=== PATIENT | female | born 2005 | race Caucasian/White ===

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

== ENCOUNTER → 2023-04-05 | Outpatient (CLI) | payer OTHER, SELFPAY ==
--- NOTE | 2023-04-05 10:35 | MRI_ITS ---
MR Enterography Abdomen/Pelvis WO/W Contrast 04/05/2023 1:17 PM COMPARISON: None available. CLINICAL HISTORY: R19.7 - Diarrhea, unspecified, EXCESSIVE DIARREHA X2YRS, ABDOMINAL/PELVIC CRAMPING TECHNIQUE: Following oral administration of enteric contrast and administration of glucagon, multiplanar T1 and T2 weighted images along with dynamic post-gadolinium images were obtained through the abdomen and pelvis. FINDINGS: GI Tract: A few loops of proximal small bowel demonstrate mild circumferential wall thickening and mucosal hyperenhancement. No stricture, fistula, or obstruction. No drainable fluid collections. Liver: Unremarkable Gallbladder: Unremarkable Spleen: Unremarkable Pancreas: Unremarkable Adrenal Glands: Unremarkable Kidneys: Unremarkable Reproductive: Unremarkable. Bladder: Unremarkable. Lymphadenopathy: Absent Ascites: Absent Bones: No suspicious lesions MRI/Enterography Abd/Pel IMPRESSION: Findings consistent with infectious versus inflammatory enteritis. No focal fluid collection or free air. No stricture, fistula or obstruction. Electronically Signed: Jeison Streeter MD at 19:46 EDT ,
[2023-04-05 12:20] VITALS: BP 113/70; PULSE 66; RESP 14; O2SAT 100; BMI 20.5
[2023-04-05] MEDS: Glucagon 1 MG/ML Syringe IV (13:42)
[2023-04-05 14:00] VITALS: BP 127/88; PULSE 70; RESP 14; O2SAT 100
== END | disposition home or self-care (01) ==
PROVIDERS: PCP Nurse Practitioner Family; Referring Provider Internal Medicine Gastroenterology; Visit Provider Internal Medicine Gastroenterology
DX: R19.7 Diarrhea, unspecified (principal)
CPT/HCPCS: 74183; 96374; A9575; A4216; J1610

== ENCOUNTER 2023-09-12 08:41 | Day surgery (SDC) | payer OTHER, SELFPAY ==
[2023-09-12] VITALS (9 sets, daily range): BP systolic 82–116; BP diastolic 54–80; PULSE 66–91; RESP 16; TEMP 36.3–36.4; O2SAT 97–100; BMI 17.0
[2023-09-12] MEDS: Lactated Ringers 1,000 ML 15 ML IV (09:14)
[2023-09-12 09:16] LABS: Internal QC Validated? YES +Cl - CLEAR BKGD; Pregnancy, Urine Negative Negative; Record Kit Lot#,Urine Preg HCG0000718086
--- NOTE | 2023-09-12 09:40 | PCM.HP.BLA ---
History and Physical Date of Admission: 09/12/23 17 F who presents to the office today for PCP referred 3.14.23 for GI issues to include loose stools and abdominal pain with fatigue. *BGI established 5.26.23 loose 3-4/day with abdominal pain and nausea with difficulty gaining weight; severe episodes occurring approximately once a month lasting days to weeks with significant increase of loose stools, abdominal pain, nausea and emesis with weight loss of 10lbs during these episodes. 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 Strong family history of colon and stomach cancer. She has not had prior workup for any of this. Recent history of increased infections to include COVID and MRSA dental abscess. ? Biochemical CBC, ESR, CMP, LDH, LFT, RAST, ADITI comp, GAME, ANCA, celiac, gastrin, BRIANNA, IBD, PR3, TB, titers without pertinent abnormality. ? CRP H3.12, MPO H656 ? Stool calprotectin, elastase, h.pylori, C.difficile, lactoferrin, blood, EP, O/P, giardia WNL Contact, mother, .. with MPO results and recommend rheumatology referral. She will determine who they would like to see and let this clinic know. Referred to Dr. Lenz. ? MREnterography 10.3.23 few proximal small bowel loops with mild circumferential wall thickening and mucosal hyperenhancement. OV 10.5.23 BM pattern 1-2 days with little to no BM with straining which will produce hard stools then will have loose stools without blood/mucus 4-5/day which can be triggered by foods. BM are preceding by abdominal pain. Dr. Lenz seen but visit was not conclusive, labs were drawn. ROS Const Constitutional: No anorexia, fatigue, fever(s), weight change or sleep problems Eyes Eyes: No change in vision ENT ENT: No abnormal hearing, difficulty swallowing, mouth lesions, tongue swelling or throat swelling Resp Respiratory: No cough or shortness of breath Cardio Cardiology: No chest pain at rest, chest pain with exertion, shortness of breath or dyspnea on exertion Gastro GI: No difficulty swallowing Genitourinary-Female: No difficulty urinating or burning urination Musc Musculoskeletal: No joint pain, joint swelling, muscle weakness or decreased muscle mass Skin Skin: No hair loss in leg, yellowing of the eye, itchy eyes, rash, skin ulcer or skin swelling Neuro Neurology: No abnormal hearing, abnormal movements, confusion, unsteady gait/balance or memory loss Psych Psychiatric: No anxiety, No confusion and No memory loss Endo Endocrine: No fatigue or weight change Aller/Imm Allergy/Immunologic: No itchy eyes, throat swelling or tongue swelling Yogi/Lymp Hematologic/Lymphatic: No easy bleeding, easy bruising or enlarged lymph nodes Exam Const General: cooperative and comfortable Nutritional Appearance: average body habitus and well nourished HENMT Head: normal to inspection Ears: hearing grossly normal bilaterally Nose: external nose normal Face and sinus: normal facial exam Mouth: oral mucosae normal Throat: posterior oropharynx normal Eyes General: appearance normal, both eyes and all related structures Neck Neck: normal visual inspection Chest Chest palpation & inspection: normal inspection of the chest and normal palpation of entire chest wall Resp Effort & Inspection: normal respiratory effort Auscultation: Bilateral: Clear to Auscultation Cardio Palpation: normal PMI Rate: regular rate Rhythm: regular rhythm GI Inspection: normal to inspection Auscultation: normal bowel sounds Percussion: normal to percussion Palpation: no hepatosplenomegaly Skin General: no rashes or lesions noted Neuro General: patient alert Extrem General: normal to inspection Psych Affect: normal affect Quality Reporting Tobacco Screening ([facility] 138) Smoking Status: Never smoker Assessment and Plan Assessment and Plan (1) IBS (irritable bowel syndrome): Status: Chronic Qualifiers: Irritable bowel syndrome type: with diarrhea Qualified Code(s): K58.0 - Irritable bowel syndrome with diarrhea (2) Diarrhea: Status: Inactive Qualifiers: Diarrhea type: functional diarrhea Qualified Code(s): K59.1 - Functional diarrhea Plan: The differential diagnosis for diarrhea does include exocrine pancreatic insufficiency, bile acid induced diarrhea, accelerated gastrocolic reflex, inflammatory bowel disease, microscopic colitis, celiac disease, postinfectious diarrhea since she did have a Cryptosporidium infection. Her MRI enterography did display some inflammation in the small bowel. We will get a capsule study and decide a treatment course and if there is any need to perform an egd and colonoscopy. I have examined the patient and the H&P has been reviewed. There are no clinical changes since date of exam.
--- NOTE | 2023-09-12 09:45 | IMM_PTH ---
PATHOLOGY RESULTS PATIENT: DANIELLE RAMIREZ LOC: EN U#:[id number] AGE/SX: 17/F ROOM: RE09/12/[address]: Dr. Nash Cabrera DO : 2005 BED: DIS: 09/12/2023 SPEC #: [id number] RECD: 09/12/23 13:55 STATUS: MAKAYLA REQ #: [id number] ADRIEN: 09/12/23 09:[address]: Nash Cabrera DEPT: IMMUNOHISTOCHEMISTRY RECD BY: Samson Rowland ENTERED: 09/12/23 13:56 SP TYPE: IMMUNO LYNNE DR: CHELSEY Girard Tissues: Stomach, NOS Procedures: H Pylori (initial) PHYSICIAN & [place] [id number] SPECIMEN INFORMATION: Tissue Source: B.Gastric Body Clinical Info: Irritable Bowel Syndrome Specimen Number: [id number] CPT code: 32027 METHODOLOGY: Deparaffinized sections of prefer/formalin-fixed tissue or PAP/DQ stained slides are incubated with monoclonal/polyclonal antibodies/oligonucleotide probes. Localization is made via biotin free immunoperoxidase method. Appropriate controls are performed and reacted as expected. Results on target cell population are indicated in the following table: RESULTS: ANTIBODY / CLONE RESULT Block B H.pylori negative These tests were developed and their performance characteristics determined by [facility]. They may not have been cleared or approved by the U.S. Food and Drug Administration. The FDA has determined that such clearance or approval is not necessary. The above immunohistochemical/dualISH markers are ordered and reviewed by the Pathologist. INTERPRETATION: B- Gastric body biopsy: Negative for Helicobacter pylori organisms. AM:abhi 09/13/2023
--- NOTE | 2023-09-12 09:45 | EGD_PTH ---
PATHOLOGY RESULTS PATIENT: DANIELLE RAMIREZ LOC: EN U#:[id number] AGE/SX: 17/F ROOM: RE09/12/[address]: Dr. Nash Cabrera DO : 2005 BED: DIS: 09/12/2023 SPEC #: [id number] RECD: 09/12/23 12:50 STATUS: MAKAYLA RENathan #: [id number] ADRIEN: 09/12/23 09:[address]: Nash Cabrera DEPT: SURGICAL PATHOLOGY RECD BY: Mindy Garcia ENTERED: 09/12/23 13:44 SP TYPE: EGD BIOPSY LYNNE DR: CHELSEY Girard Tissues: Duodenum, NOS Gastric mucous membrane Ileum, NOS COLON BIOPSY Procedures: Surgery Specimen Level IV HEADER OPERATION: Colonoscopy, EGD, biopsy PRE-OP DIAGNOSIS: Irritable Bowel Syndrome TISSUE SUBMITTED: A. Duodenum biopsy, B. Gastric body biopsy, C. Terminal Ileum biopsy, D. Random colonic biopsy MICROSCOPIC DIAGNOSIS A. Duodenum, biopsy: Fragments of duodenal mucosa, no pathologic diagnosis. B. Gastric body, biopsy: Mild gastritis. See microscopic description and comment. C. Terminal ileum, biopsy: Fragments of small intestinal mucosa, no pathologic diagnosis. See comment. D. Colon, random biopsy: Focal acute colitis. See comment. SJ:abhi 09/13/2023 COMMENT B. The results of immunohistochemistry for Helicobacter pylori will be reported separately ([id number]). C. Prominent lymphoid aggregates are noted. D. Focal cryptitis and minimal glandular distortion is noted. Crypt abscesses or granulomas are not seen. No evidence of dysplasia. Correlation with clinical, endoscopic findings and appropriate follow up are necessary. MICROSCOPIC DESCRIPTION Slides are reviewed. B. The specimen shows fragments of gastric mucosa with chronic inflammatory cell infiltrates in the lamina propria consisting of lymphocytes and plasma cells, consistent with mild chronic gastritis. GROSS DESCRIPTION A - Received in fixative is one container labeled with the patient's name and designated Duodenum Biopsy. The specimen consists of multiple irregular fragments of light cox soft tissue that in aggregate measure 1.5 x 1.0 x 0.1 cm. The specimen is totally submitted in one cassette. B - Received in fixative is one container labeled with the patient's name and designated Gastric body. The specimen consists of multiple irregular fragments of light cox soft tissue that in aggregate measure 1.3 x 0.2 x 0.1 cm. The specimen is totally submitted in one cassette. C - Received in fixative is one container labeled with the patient's name and designated Terminal Ileum biopsy. The specimen consists of multiple irregular fragments of light cox soft tissue that in aggregate measure 1.0 x 0.5 x 0.1 cm. The specimen is totally submitted in one cassette. D - Received in fixative is one container labeled with the patient's name and designated Random Colonic biopsy. The specimen consists of multiple irregular fragments of light cox soft tissue that in aggregate measure 2.0 x 1.0 x 0.1 cm. The specimen is totally submitted in one cassette. AM/ 09/12/23 TC:2 CPT: 09444 x4
--- NOTE | 2023-09-12 10:27 | OP.CCLET_ITS ---
09/12/2023 Junito Ward Re : Upper GI endoscopy procedure for Stephanie Mae Dear Np. Carlson This procedure was performed on Tuesday, September 12, 2023. My impressions and recommendations are as follows: Impressions : - Normal esophagus. - Erythematous mucosa in the gastric body. Possibly secondary to bile gastritis. The area was biopsied. - No gross lesions in the second portion of the duodenum. Biopsied. Recommendations : - Discharge patient to home. - Resume previous diet. - Continue present medications. - Await pathology results. My findings are described in the full procedure note, which is enclosed. If I can be of further assistance, please feel free to contact me at . Sincerely, Nash Cabrera, 09/12/2023 10:27:15 AM This report has been signed electronically.
--- NOTE | 2023-09-12 10:27 | OP.EGD_ITS ---
Patient Name: Stephanie Mae Procedure Date: 09/12/2023 9:44 AM Date of : 2005 Age: 17 Procedure: Upper GI endoscopy Indications: Epigastric abdominal pain Providers: Nash Cabrera DO Medicines: Monitored Anesthesia Care Patient Profile: This is a 17 year old female. Refer to note in patient chart for documentation of history and physical. Patient has symptoms of acute abdominal cramping, chronic abdominal cramping, acute epigastric abdominal pain, chronic epigastric abdominal pain, acute dyspepsia and chronic dyspepsia. Complications: No immediate complications. Procedure: Pre-Anesthesia Assessment: - Prior to the procedure, a History and Physical was performed, and patient medications and allergies were reviewed. The patient is competent. The risks and benefits of the procedure and the sedation options and risks were discussed with the patient. All questions were answered and informed consent was obtained. Patient identification and proposed procedure were verified by the physician in the pre-procedure area. Mental Status Examination: alert and oriented. Airway Examination: normal oropharyngeal airway and neck mobility. Respiratory Examination: clear to auscultation. CV Examination: normal. Prophylactic Antibiotics: The patient does not require prophylactic antibiotics. Prior Anticoagulants: The patient has taken no anticoagulant or antiplatelet agents. ASA Grade Assessment: II - A patient with mild systemic disease. After reviewing the risks and benefits, the patient was deemed in satisfactory condition to undergo the procedure. The anesthesia plan was to use monitored anesthesia care (MAC). Immediately prior to administration of medications, the patient was re-assessed for adequacy to receive sedatives. The heart rate, respiratory rate, oxygen saturations, blood pressure, adequacy of pulmonary ventilation, and response to care were monitored throughout the procedure. The physical status of the patient was re-assessed after the procedure. After obtaining informed consent, the endoscope was passed under direct vision. Throughout the procedure, the patient's blood pressure, pulse, and oxygen saturations were monitored continuously. The Colonoscope was introduced through the mouth, and advanced to the second part of duodenum. The upper GI endoscopy was accomplished without difficulty. The patient tolerated the procedure well. Scope In: 9:55:19 AM Scope Out: 9:59:42 AM Total Procedure Duration Time 0 hours 4 minutes 23 seconds Findings: The examined esophagus was normal. Patchy mildly erythematous mucosa without bleeding was found in the gastric body. Biopsies were taken with a cold forceps for histology. Verification of patient identification for the specimen was done. Biopsies were taken with a cold forceps for Helicobacter pylori testing. Verification of patient identification for the specimen was done. Estimated blood loss was minimal. No gross lesions were noted in the second portion of the duodenum. Biopsies were taken with a cold forceps for histology. Verification of patient identification for the specimen was done. Estimated blood loss was minimal. Impression: - Normal esophagus. - Erythematous mucosa in the gastric body. Possibly secondary to bile gastritis. The area was biopsied. - No gross lesions in the second portion of the duodenum. Biopsied. Recommendation: - Discharge patient to home. - Resume previous diet. - Continue present medications. - Await pathology results. Procedure Code(s): --- Professional --- 96983, Esophagogastroduodenoscopy, flexible, transoral; with biopsy, single or multiple CPT copyright 2021 [employer]. All rights reserved. The codes documented in this report are preliminary and upon machine operator helper review may be revised to meet current compliance requirements. Nash Cabrera DO 09/12/2023 10:27:15 AM This report has been signed electronically. Number of Addenda: 0 Note Initiated On: 09/12/2023 9:44 AM
--- NOTE | 2023-09-12 10:32 | OP.CCLET_ITS ---
09/12/2023 Junito Ward Re : Colonoscopy procedure for Stephanie Mae Dear Np. Carlson This procedure was performed on Tuesday, September 12, 2023. My impressions and recommendations are as follows: Impressions : - Congested mucosa in the sigmoid colon, at the hepatic flexure and in the ascending colon. Biopsied. - Mild mucosal changes were found in the ileum. Biopsied. Recommendations : - Discharge patient to home. - Resume previous diet. - Continue present medications. - Await pathology results. - Repeat colonoscopy is recommended. The colonoscopy date will be determined after pathology results from today's exam become available for review. My findings are described in the full procedure note, which is enclosed. If I can be of further assistance, please feel free to contact me at . Sincerely, Nash Cabrera, 09/12/2023 10:31:52 AM This report has been signed electronically.
--- NOTE | 2023-09-12 10:32 | OP.COLON_ITS ---
Patient Name: Stephanie Mae Procedure Date: 09/12/2023 9:59 AM Date of : 2005 Age: 17 Procedure: Colonoscopy Indications: Generalized abdominal pain, Chronic diarrhea, Abnormal MRI of the GI tract Providers: Nash Cabrera DO Medicines: Monitored Anesthesia Care Patient Profile: This is a 17 year old female. Refer to note in patient chart for documentation of history and physical. Patient has symptoms of acute abdominal cramping, chronic abdominal cramping, acute epigastric abdominal pain, chronic epigastric abdominal pain, acute dyspepsia and chronic dyspepsia. Last Colonoscopy: none. The patient's first colonoscopy is today. Complications: No immediate complications. Procedure: Pre-Anesthesia Assessment: - Prior to the procedure, a History and Physical was performed, and patient medications and allergies were reviewed. The patient is competent. The risks and benefits of the procedure and the sedation options and risks were discussed with the patient. All questions were answered and informed consent was obtained. Patient identification and proposed procedure were verified by the physician in the pre-procedure area. Mental Status Examination: alert and oriented. Airway Examination: normal oropharyngeal airway and neck mobility. Respiratory Examination: clear to auscultation. CV Examination: normal. Prophylactic Antibiotics: The patient does not require prophylactic antibiotics. Prior Anticoagulants: The patient has taken no anticoagulant or antiplatelet agents. ASA Grade Assessment: II - A patient with mild systemic disease. After reviewing the risks and benefits, the patient was deemed in satisfactory condition to undergo the procedure. The anesthesia plan was to use monitored anesthesia care (MAC). Immediately prior to administration of medications, the patient was re-assessed for adequacy to receive sedatives. The heart rate, respiratory rate, oxygen saturations, blood pressure, adequacy of pulmonary ventilation, and response to care were monitored throughout the procedure. The physical status of the patient was re-assessed after the procedure. After I obtained informed consent, the scope was passed under direct vision. Throughout the procedure, the patient's blood pressure, pulse, and oxygen saturations were monitored continuously. The Colonoscope was introduced through the anus and advanced to the terminal ileum. The colonoscopy was performed without difficulty. The patient tolerated the procedure well. The quality of the bowel preparation was adequate. Scope In: 10:02:02 AM Scope Withdrawal Time 0 hours 8 minutes 32 seconds Scope Out: 10:15:41 AM Total Procedure Duration Time 0 hours 13 minutes 39 seconds Findings: The perianal and digital rectal examinations were normal. An area of mildly congested mucosa was found in the sigmoid colon, at the hepatic flexure and in the ascending colon. Biopsies were taken with a cold forceps for histology. Patchy mild mucosal changes characterized by friability were found in the terminal ileum. Biopsies were taken with a cold forceps for histology. Verification of patient identification for the specimen was done. Estimated blood loss was minimal. Impression: - Congested mucosa in the sigmoid colon, at the hepatic flexure and in the ascending colon. Biopsied. - Mild mucosal changes were found in the ileum. Biopsied. Recommendation: - Discharge patient to home. - Resume previous diet. - Continue present medications. - Await pathology results. - Repeat colonoscopy is recommended. The colonoscopy date will be determined after pathology results from today's exam become available for review. Procedure Code(s): --- Professional --- 76484, Colonoscopy, flexible; with biopsy, single or multiple CPT copyright 2021 [employer]. All rights reserved. The codes documented in this report are preliminary and upon dry plasterer review may be revised to meet current compliance requirements. Nash Cabrera DO 09/12/2023 10:31:52 AM This report has been signed electronically. Number of Addenda: 0 Note Initiated On: 09/12/2023 9:59 AM
== END 2023-09-12 11:32 | disposition home or self-care (01) ==
LOC: EN 08:43 → AC 08:44
PROVIDERS: Anesthesiology; PCP Nurse Practitioner Family; Referring Provider Nurse Practitioner Family; Visit Provider Internal Medicine Gastroenterology
PROC: 0DJD8ZZ Inspection of Lower Intestinal Tract, Via Natural or Artificial Opening Endoscopic (ICD-10-PCS; CPT 45378; principal; 2023-09-12 09:40)
DX: K29.70 Gastritis, unspecified, without bleeding (principal); K58.0 Irritable bowel syndrome with diarrhea; Z87.19 Personal history of other diseases of the digestive system
CPT/HCPCS: 45380; 43239; 81025; 88305; 88342; J7120; J2405

== ENCOUNTER → 2024-09-17 | Outpatient (CLI) | payer OTHER, SELFPAY ==
[2024-09-17 18:11] LABS: Absolute Lymphocyte Count 2.39 X10^3/uL (0.83-4.51); Absolute Neutrophil Count 3.5 X10^3/uL (2.0-7.7); Basophil# 0.04 X10^3/uL; Basophil% 0.6 % (0-1); Eosinophil# 0.04 X10^3/uL; Eosinophils% 0.6 % (0-5); Hematocrit 39.9 % (37-47); Hemoglobin 13.6 g/dL (12.0-15.0); Lymphocyte # 2.39 X10^3/ul (0.83-4.51); Lymphocyte % 37.8 % (19-41); Mean Corp Hgb Conc 34.1 g/dL (32-36); Mean Corpuscular Volume 87.9 fL (81-99); Mean Platelet Vol. 10.8 fl (6.2-12.0); Monocyte% 6.3 % (0-10); NRBC Flagged by Analyzer 0 % (0-5); Neutrophil # 3.45 X10^3/uL (2.7-7.7); Neutrophil % 54.5 % (47-70); Platelet Count 331 K/mm3 (150-450); RBC Distribution Width SD 38.5 fl (35.1-43.9); Red Blood Count 4.54 M/mm3 (4.2-5.4); White Blood Count 6.3 K/mm3 (4.4-11.0)
[2024-09-17 18:19] LABS: PTHIN 26 pg/mL (11-61)
[2024-09-17 18:50] LABS: ALB/GLOB Ratio 1.4 RATIO (0.9-2.4); AST(SGOT) 22 U/L (<=31); Alanine Aminotransfer ALT/SGPT 14 U/L (<=34); Albumin, Serum 4.5 g/dL (3.5-5.0); Alkaline Phosphatase 51 U/L (35-104); Anion Gap 16 (5-15); BUN 15 mg/dL (4-19); BUN/Creat Ratio 16.8 RATIO (10-20); CRP 4.12 mg/L (0.0-3.0); Calcium,Total 9.5 mg/dL (7.6-11.0); Carbon Dioxide 19.5 mmol/L (21.0-32.0); Chloride 102 mmol/L (98-108); Creatinine, Serum 0.92 mg/dL (0.70-1.20); EST Glomerular Filtration Rate 92 (>60); Ferritin 94 ng/mL (22-378); Globulin 3.2 g/dL (2.2-4.2); Glucose 84 mg/dL (70-99); Magnesium 2.3 mg/dL (1.5-2.2); Potassium 4.2 mmol/L (3.3-5.1); Protein, Total 7.7 g/dL (5.9-8.4); Sodium Level 137 mmol/L (133-145); Total Bilirubin 0.46 mg/dL (0.00-1.30); Vitamin B12 494 pg/mL (180-914)
[2024-09-17 19:04] LABS: Erythrocyte Sedimentation Rate 5 mm/hr (0-30)
[2024-09-19 17:08] LABS: Anti-Thyroglobulin AB < 1.0 IU/mL (0.0-0.9); Thyroglobulin, Serum Qt. 19.1 ng/mL (1.5-38.5); Thyroid Peroxidase AB 11 IU/mL (0-34)
== END | disposition home or self-care (01) ==
LOC: MFPLAB 16:20
PROVIDERS: PCP Nurse Practitioner Family; Referring Provider Family Medicine; Visit Provider Family Medicine
DX: R00.2 Palpitations (principal); K50.90 Crohn's disease, unspecified, without complications
CPT/HCPCS: 36415; 80053; 82607; 82728; 82746; 83735; 83970; 84432; 84439; 84443; 85025; 85652; 86140; 86376; 86800